=== PATIENT | male | born 1955 | race Caucasian/White ===

== ENCOUNTER 2016-11-02 11:32 | Outpatient (CLI) ==
[2015-03-14 08:19] VITALS: BMI 27.6
[2016-11-02 12:53] LABS: BASOPHILS # (AUTO) 0.1 K/uL (0-0.2); BASOPHILS % (AUTO) 0.6 % (0.0-3.0); EOSINOPHILS # (AUTO) 0.4 K/ul (0.0-0.7); HEMATOCRIT 42.7 % (42.0-52.0); HEMOGLOBIN 14.4 g/dl (14.0-18.0); IMMATURE GRANULOCYTE % (AUTO) 0.3 % (0.0-5.0); LYMPHOCYTES # (AUTO) 3.6 K/uL (0.60-3.4); MEAN CORPUSCULAR HEMOGLOBIN 29.4 pg (27.0-31.0); MEAN CORPUSCULAR HGB CONC 33.7 (31.8-35.4); MEAN CORPUSCULAR VOLUME 87.1 fl (80.0-94.0); MONOCYTES # (AUTO) 0.7 K/uL (0.4-2.0); MONOCYTES % (AUTO) 9.2 (0-10); NEUTROPHILS # (AUTO) 3.2 K/ul (2.0-6.9); NEUTROPHILS % (AUTO) 39.9; PLATELET COUNT 298 10^3/uL (140-440); WHITE BLOOD COUNT 7.97 K/ul (4.2-10.2)
[2016-11-02 13:34] LABS: ALBUMIN 3.8 g/dL (3.4-5.0); ALBUMIN/GLOBULIN RATIO 0.95; BILIRUBIN,TOTAL 0.32 mg/dL (0.00-1.20); BUN/CREATININE RATIO 9.33; CALCIUM 9.7 mg/dL (8.2-10.2); CHOL/HDL RATIO 8.3 (4.5-6.4); CREATININE 1.5 mg/dL (0.60-1.10); TOTAL PROTEIN 7.8 g/dL (5.8-8.1)
[2016-11-03 07:24] LABS: PROLACTIN 63.9 ng/mL (4.0-15.2)
[2016-11-04 08:12] LABS: FREE TESTOSTERONE 6.1 pg/mL (6.6-18.1)
== END 2016-11-02 11:33 | disposition home or self-care (01) ==
LOC: LAB 11:32
PROVIDERS: ATTEND Nurse Practitioner Family
DX: F32.9 Major depressive disorder, single episode, unspecified (principal); F31.9 Bipolar disorder, unspecified; E78.5 Hyperlipidemia, unspecified; I10 Essential (primary) hypertension
CPT/HCPCS: 36415; 80053; 80061; 80074; 83036; 84146; 84402; 84439; 84443; 85025

== ENCOUNTER 2016-11-09 07:20 | Outpatient (CLI) ==
[2015-03-14 08:19] VITALS: BMI 27.6
--- NOTE | 2016-11-09 08:44 | US ---
Examination: Ultrasonographic evaluation of the kidneys utilizing real time reardon scale and color Do ppler. Reason for study: Abnormal blood history. Comparison: None available FINDINGS: Right kidney: The right kidney measures 9.7 x 3.6 x 4.7 cm with a normal appearing echotexture, no hydronephrosis, and no nephrolithiasis. No perinephric inflammatory change. There is mild lobulated appearance to the renal parenchyma. Left kidney: The left kidney measures 9.5 x 3.8 x 4.3 cm with a normal appearing echotexture, no hydronephrosis, and no nephrolithiasis. There is no perinephric inflammatory change. The left kidney also has a mi ldly lobulated appearance of the renal parenchyma. The bladder is difficult to evaluate accurately as is almost empty of urine. This makes interpretat ion of bladder wall thickness and identification of possible bladder lesions unreliable. Impression: Mild lobulation is seen in both of the renal cortices. Otherwise, unremarkable ultraso nographic examination of the kidneys.
== END 2016-11-09 07:21 | disposition home or self-care (01) ==
LOC: RAD 07:20
PROVIDERS: ATTEND Nurse Practitioner Family
DX: R79.89 Other specified abnormal findings of blood chemistry (principal); J44.9 Chronic obstructive pulmonary disease, unspecified
CPT/HCPCS: 76770

== ENCOUNTER 2017-01-04 08:32 | Outpatient (CLI) ==
[2015-03-14 08:19] VITALS: BMI 27.6
[2017-01-04 09:39] LABS: ANION GAP 13.8; BUN/CREATININE RATIO 13.09; CALCIUM 9.7 mg/dL (8.2-10.2); CREATININE 1.68 mg/dL (0.60-1.10); POTASSIUM 3.8 mmol/L (3.5-5.1)
[2017-01-05 08:19] LABS: FOLLICLE STIMULATING HORMONE 4.6 mIU/mL (1.5-12.4); LUTEINIZING HORMONE 5.9 mIU/mL (1.7-8.6); TESTOSTERONE 295 ng/dL (348-1197)
[2017-01-05 12:03] LABS: PROLACTIN 19.1 ng/mL (4.0-15.2)
== END 2017-01-04 08:33 | disposition home or self-care (01) ==
LOC: LAB 08:32
PROVIDERS: ATTEND Nurse Practitioner
DX: R53.83 Other fatigue (principal); E29.1 Testicular hypofunction; E22.9 Hyperfunction of pituitary gland, unspecified; R79.89 Other specified abnormal findings of blood chemistry
CPT/HCPCS: 36415; 80048; 82024; 82306; 82533; 82607; 83001; 83002; 84146; 84402; 84403

== ENCOUNTER 2017-04-21 12:46 | Outpatient (CLI) ==
[2015-03-14 08:19] VITALS: BMI 27.6
[2017-04-21 13:27] LABS: BASOPHILS # (AUTO) 0.1 K/uL (0-0.2); BASOPHILS % (AUTO) 0.7 % (0.0-3.0); EOSINOPHILS # (AUTO) 0.3 K/ul (0.0-0.7); EOSINOPHILS % (AUTO) 3.6 % (0.0-7.0); HEMATOCRIT 41.8 % (42.0-52.0); HEMOGLOBIN 14.1 g/dl (14.0-18.0); IMMATURE GRANULOCYTE % (AUTO) 0.2 % (0.0-5.0); LYMPHOCYTES # (AUTO) 3.3 K/uL (0.60-3.4); LYMPHOCYTES % (AUTO) 34.9 (10.0-50.0); MEAN CORPUSCULAR HEMOGLOBIN 28.4 pg (27.0-31.0); MEAN CORPUSCULAR HGB CONC 33.7 (31.8-35.4); MEAN CORPUSCULAR VOLUME 84.3 fl (80.0-94.0); MONOCYTES # (AUTO) 0.8 K/uL (0.4-2.0); MONOCYTES % (AUTO) 8.2 (0-10); NEUTROPHILS # (AUTO) 4.9 K/ul (2.0-6.9); NEUTROPHILS % (AUTO) 52.4; PLATELET COUNT 308 10^3/uL (140-440); RED BLOOD COUNT 4.96 10^6/ul (4.70-6.10); WHITE BLOOD COUNT 9.36 K/ul (4.2-10.2)
[2017-04-21 13:39] LABS: ALBUMIN 3.6 g/dL (3.4-5.0); ALBUMIN/GLOBULIN RATIO 0.97; ANION GAP 15.5; BILIRUBIN,TOTAL 0.24 mg/dL (0.00-1.20); BUN/CREATININE RATIO 10.14; CALCIUM 9.6 mg/dL (8.2-10.2); CHOL/HDL RATIO 5.5 (4.5-6.4); CREATININE 1.38 mg/dL (0.60-1.10); POTASSIUM 4.5 mmol/L (3.5-5.1); TOTAL PROTEIN 7.3 g/dL (5.8-8.1)
== END 2017-04-21 12:47 | disposition home or self-care (01) ==
LOC: LAB 12:46
PROVIDERS: ATTEND Nurse Practitioner Family
DX: E78.5 Hyperlipidemia, unspecified (principal); I25.10 Atherosclerotic heart disease of native coronary artery without angina pectoris; J44.9 Chronic obstructive pulmonary disease, unspecified; F17.200 Nicotine dependence, unspecified, uncomplicated
CPT/HCPCS: 36415; 80053; 80061; 85025

== ENCOUNTER 2017-09-12 12:40 | Outpatient (CLI) ==
[2015-03-14 08:19] VITALS: BMI 27.6
[2017-09-12 13:17] LABS: CHOL/HDL RATIO 5.7 (4.5-6.4)
== END 2017-09-12 12:41 | disposition home or self-care (01) ==
LOC: LAB 12:40
PROVIDERS: ATTEND Internal Medicine
DX: E78.2 Mixed hyperlipidemia (principal)
CPT/HCPCS: 36415; 80061

== ENCOUNTER 2018-01-09 14:22 | Outpatient (CLI) ==
[2015-03-14 08:19] VITALS: BMI 27.6
== END 2018-01-09 14:23 | disposition home or self-care (01) ==
LOC: RHC-LAB 14:22
PROVIDERS: ATTEND Nurse Practitioner Family
DX: R73.9 Hyperglycemia, unspecified (principal); F41.8 Other specified anxiety disorders; Z12.5 Encounter for screening for malignant neoplasm of prostate
CPT/HCPCS: 36415; 83037; 84443

== ENCOUNTER 2018-03-27 11:52 | Outpatient (CLI) ==
[2015-03-14 08:19] VITALS: BMI 27.6
== END 2018-03-27 11:53 | disposition home or self-care (01) ==
LOC: RHC-LAB 11:52
PROVIDERS: ATTEND Nurse Practitioner Family
DX: E78.5 Hyperlipidemia, unspecified (principal); I10 Essential (primary) hypertension
CPT/HCPCS: 36415; 80053; 80061; 85025

== ENCOUNTER 2018-12-10 12:05 | Inpatient (IN) ==
--- NOTE | 2018-12-10 14:46 | CT ---
Exam: CT abdomen pelvis without intravenous contrast followed by CT abdomen pelvis with intravenous contrast. Comparison: Ultrasound kidneys performed 11/09/2016. Reason for exam: Gross hematuria x 1 month FINDINGS: Patchy airspace opacities are seen in both lung bases. No pleural effusion, or focal consolidation. Operative changes are seen after midline sternotomy. The heart is mildly prominent in size. The liver is lower in attenuation in the spleen on the noncontrasted images. Small stones are seen in the dependent portion of the gallbladder without wall thickening. The splenic parenchyma, adrenal glands, and pancreas appear grossly unremarkable within limitations o f a noncontrasted study. No focal small bowel dilatation or transition point. Right Kidney: No contrast enhancing parenchymal mass lesion, hydronephrosis or hydroureter. Excreted contrast is seen in the renal collecting systems, renal pelvis, and proximal right ureter. There is apparent intraluminal filling defect in the proximal right ureter on axial image number 88. Small amount of contrast is seen within the ureter distally. With mild periureteral inflammatory ch erica. The left kidney appears grossly unremarkable without contrast enhancing mass lesion. Renal stone, or hydronephrosis. Excrete contrast is seen to the midportion of the left ureter. The bladder appears grossly unremarkable without obvious wall thickening. No focal small bowel dilatation or transition point. No intra-abdominal free air or pelvic free fluid. Atherosclerotic disease is seen within the aorta and distal arterial vasculature. The appendix appears unremarkable. Impression: 1. No contrast enhancing mass lesions are seen in either kidney. No hydronephrosis, hydroureter or nephrolithiasis. 2. Apparent intraluminal filling defect in the midportion of the proximal right ureter on axial imag e number 80. CT urogram versus direct visualization may be performed for further characterization. 3. Contrast is seen to the mid/distal left ureter without evidence of intraluminal filling defect 4. Otherwise, no acute inflammatory findings are seen within the abdomen or pelvis.
--- NOTE | 2018-12-10 15:14 | ED.PDOC ---
General ED Provider: Dr. BIJAN TSE Chief Complaint: Shortness of Air Stated Complaint: hematuria Time Seen by Physician: 12:12 Information Source: Patient, Family Exam Limitations: No limitations Primary Care Provider: VIRIDIANA MALDONADO Nursing and Triage Documentation Reviewed and Agree: Yes Does patient meet sepsis criteria?: No System Inflammatory Response Syndrome: Not Applicable Sepsis Protocol: For patient's 13 years and over: Temp is 96.8 and below OR 101 and greater Pulse >90 BPM Resp >20/minute Acutely Altered Mental Status Are patient's symptoms suggestive of a new infection, such as: -Pneumonia -Skin, Soft Tissue -Endocarditis -UTI -Bone, Joint Infection -Implantable Device -Acute Abdominal Infection -Wound Infection -Meningitis -Blood Stream Catheter Infection -Unknown Complaint Exam - Complaint/Exam Patient Complains of: Reports: Dysuria Onset/Duration: 2 month Symptoms Are: Still present Timing: Intermittent Initial Severity: Moderate Current Severity: Mild Location of Pain: Reports: None (painless hematuria) Aggravating: Reports: None Alleviating: Reports: None Associated Signs and Symptoms: Denies: Diaphoresis, Back pain, Fever, Hematuria , Dysuria, Constipation, Blood in stool, Rectal pain, Appetite change, Nausea, Vomiting, Penile swelling, Penile discharge, Decreased urine output, Increased urine frequency, Increased thirst, Decreased activity, Lethargy, Scrotal pain, Scrotal swelling, Abdominal Pain Testicular Torsion Risk Factors: Reports: None Surgical Obstruction Risk Factors: Reports: None Related Surgical History: Reports: None Abdominal Findings: Present: None Differential Diagnoses: UTI Review of Systems - Review Of Systems Constitutional: Reports: No symptoms Eyes: Reports: No symptoms Ears, Nose, Mouth, Throat: Reports: No symptoms Respiratory: Reports: No symptoms Cardiac: Reports: No symptoms GI: Reports: No symptoms : Reports: Hematuria Musculoskeletal: Reports: No symptoms Skin: Reports: No symptoms Neurological: Reports: No symptoms Endocrine: Reports: No symptoms Hematologic/Lymphatic: Reports: No symptoms All Other Systems: Reviewed and Negative Past Medical History - Past Medical History Previously Healthy: Yes Endocrine: Reports: None Cardiovascular: Reports: Hypertension Respiratory: Reports: COPD Hematological: Reports: None Gastrointestinal: Reports: GERD Genitourinary: Reports: None Neuro/Psych: Reports: None Musculoskeletal: Reports: None Cancer: Reports: None - Surgical History General Surgical History: Reports: CABG - Family History Family History: Reports: None - Social History Smoking Status: Current every day smoker Hx Substance Use: No Alcohol Screening: None Physical Exam - Physical Exam Appearance: Well-appearing, No pain distress, Well-nourished Eyes: CHANNING, EOMI, Conjunctiva clear ENT: Ears normal, Nose normal, Oropharynx normal Respiratory: Airway patent, Breath sounds clear, Breath sounds equal, Respirations nonlabored Cardiovascular: RRR, Pulses normal, No rub, No murmur GI/: Soft, Nontender, No masses, Bowel sounds normal, No Organomegaly Musculoskeletal: Normal strength, ROM intact, No edema, No calf tenderness Skin: Warm, Dry, Normal color Neurological: Sensation intact, Motor intact, Reflexes intact, Cranial nerves intact, Alert, Oriented Psychiatric: Affect appropriate, Mood appropriate Interpretation - Radiology Interpretation Radiology Results: No acute changes (interms of renal mass) Critical Care Note - Critical Care Note Total Time (mins): 0 Course - Course Hematology/Chemistry: 12/10/18 12:45 12/10/18 12:45 Orders, Labs, Meds: Lab Review 12/10/18 12/10/18 12/10/18 12:20 12:45 12:45 WBC 29.06 H RBC 4.84 Hgb 12.7 L Hct 37.8 L MCV 78.1 L MCH 26.2 L MCHC 33.6 RDW Coeff of Kain 12.9 Plt Count 234 Neutrophils % (Manual) 66.0 Band Neutrophils % 20.0 H Lymphocytes % (Manual) 9.0 L Monocytes % (Manual) 5.0 Anisocytosis Not present PT 11.7 H INR 1.18 APTT 34.8 Sodium Potassium Chloride Carbon Dioxide Anion Gap BUN Creatinine Estimated GFR (MDRD) BUN/Creatinine Ratio Glucose Calcium Total Bilirubin AST ALT Alkaline Phosphatase Total Protein Albumin Globulin Albumin/Globulin Ratio Urine Color Yellow Urine Clarity Clear Urine pH 5.5 Ur Specific Falcon 1.015 Urine Protein Negative Urine Glucose (UA) Negative Urine Ketones Negative Urine Blood Trace-intact Urine Nitrite Positive Urine Bilirubin Negative Urine Urobilinogen 0.2 Ur Leukocyte Esterase 3+ Urine Microscopic WBC Tntc Ur Squamous Epith Cells Not present Amorphous Sediment 1+ Urine Bacteria 2+ Blood Type 12/10/18 12/10/18 12:45 12:45 WBC RBC Hgb Hct MCV MCH MCHC RDW Coeff of Kain Plt Count Neutrophils % (Manual) Band Neutrophils % Lymphocytes % (Manual) Monocytes % (Manual) Anisocytosis PT INR APTT Sodium 133.1 L Potassium 5.02 Chloride 98.0 Carbon Dioxide 21.8 L Anion Gap 18.32 BUN 24.6 H Creatinine 1.70 H Estimated GFR (MDRD) 41.00 BUN/Creatinine Ratio 14.47 Glucose 119.1 H Calcium 9.25 Total Bilirubin 0.99 AST 47.6 ALT 25.8 Alkaline Phosphatase 85.4 Total Protein 7.72 Albumin 4.28 Globulin 3.44 Albumin/Globulin Ratio 1.24 Urine Color Urine Clarity Urine pH Ur Specific Falcon Urine Protein Urine Glucose (UA) Urine Ketones Urine Blood Urine Nitrite Urine Bilirubin Urine Urobilinogen Ur Leukocyte Esterase Urine Microscopic WBC Ur Squamous Epith Cells Amorphous Sediment Urine Bacteria Blood Type A POSITIVE Orders Category Date Time Status NPO REMINDER: IMAGING ONCE CARE 12/10/18 12:41 Active CBC W/ AUTO DIFF Stat LAB 12/10/18 12:45 Completed COMPREHENSIVE METABOLIC PANEL Stat LAB 12/10/18 12:45 Completed MANUAL DIFFERENTIAL Stat LAB 12/10/18 12:45 Completed PARTIAL THROMBOPLASTIN TIME Stat LAB 12/10/18 12:45 Completed PT WITH INR Stat LAB 12/10/18 12:45 Completed UA [URINALYSIS C & S IF INDICATED] Stat LAB 12/10/18 12:20 Completed URINE CULTURE Stat LAB 12/10/18 12:[address] ABDOMEN/PELVIS W/WO CONTRAS Stat RADS 12/10/18 12:41 Completed Vital Signs: Temp Pulse Resp BP Pulse Ox 12/10/18 12:05 97.9 F 79 20 98/64 92 L Departure - Departure Time of Disposition: 15:17 (was on plavix 1 month ago not now on asprin 81 mg) Disposition: ADMITTED INPATIENT Discharge Problem: UTI (urinary tract infection) Qualifiers: Urinary tract infection type: site unspecified Hematuria presence: without hematuria Qualified Code(s): N39.0 - Urinary tract infection, site not specified Instructions: Urinary Tract Infection in Men (ED) Condition: Good Pt referred to PMD for follow-up: Yes IPMP verified?: No Additional Instructions: Please call your Family Physician as soon as possible to schedule a follow-up appointment. Allergies/Adverse Reactions: Allergies isosorbide Adverse Reaction (Verified 12/10/18 12:11) lithium Adverse Reaction (Verified 12/10/18 12:11) sertraline Adverse Reaction (Verified 12/10/18 12:11) Home Medications: Ambulatory Orders Baby Aspirin 81 mg PO DAILY 03/18/15 Atorvastatin Calcium [Lipitor] 40 mg PO DAILY 01/09/18 Temazepam 15 mg PO BEDTIME 01/09/18 Venlafaxine HCl [Effexor Xr] 150 mg PO DAILY 01/09/18 Ziprasidone HCl [Geodon] 60 mg PO BEDTIME 01/09/18 Hydroxyzine HCl 1 - 3 tab PO DAILY PRN 12/10/18 Disposition Discussed With: Patient, Family
[2018-12-10] MEDS ORDERED: SODIUM CHLORIDE 1,000 ML IV STA (15:24)
[2018-12-10] MEDS ORDERED: ROCEPHIN 1 GM in SODIUM CHLORIDE 50 ML IV STA (15:24)
[2018-12-10] MEDS ORDERED: VANCOMYCIN 1 GM in SODIUM CHLORIDE 250 ML IV STA (15:25)
[2018-12-10] MEDS ORDERED: SODIUM CHLORIDE 1,000 ML IV SCH (15:30)
[2018-12-10] MEDS ORDERED: ROCEPHIN ONE (15:36)
[2018-12-10 16:49] VITALS: BMI 32.1
[2018-12-10] MEDS ORDERED: ZANTAC PO SCH (17:00)
[2018-12-10] MEDS ORDERED: AZACTAM 1 GM in SODIUM CHLORIDE 50 ML IV STA (17:14)
--- NOTE | 2018-12-10 18:13 | CT ---
EXAM: Noncontrast chest CT HISTORY: Short of air, fever, infection COMPARISON: 01/06/2014 TECHNIQUE: Axial noncontrast CT of the chest with sagittal and coronal reformats. FINDINGS: Moderate emphysematous changes are again seen. Mild inferior right upper lobe scarring is again seen . Mild left lower lobe and lingular atelectasis is seen. There is minimal anterior medial left uppe r lobe scarring. No focal consolidation, pleural effusion or pneumothorax is identified. Heart size is normal. Operative changes of CABG are identified. Atherosclerotic calcifications are seen including coronary arteries. No mediastinal lymphadenopathy is seen. Residual contrast is seen within the kidneys. Minimal gallstones are identified. There is dilation of the abdominal aorta measuring up to 3.5 x 3.4 cm on sagittal and coronal images. IMPRESSION: No acute cardiopulmonary findings. Emphysematous changes. Atherosclerosis including coronary arteries. Abdominal aortic aneurysm measuring 3.5 x 3.4 cm.
[2018-12-10] MEDS ORDERED: AZACTAM ONE (18:22)
[2018-12-10] MEDS ORDERED: DEXTROSE 5%-LR IV SOLUTION 1,000 ML IV SCH ×3 (20:00)
[2018-12-10] MEDS ORDERED: NON-FORMULARY MEDICATION (Hydroxyzine Hcl [Hydroxyzine Hcl] 50 MG) PO SCH (21:00)
[2018-12-10] MEDS ORDERED: GEODON PO SCH (21:00)
[2018-12-10] MEDS ORDERED: ATARAX PO SCH (21:00)
[2018-12-10] MEDS ORDERED: RESTORIL PO SCH (21:00)
[2018-12-10] MEDS ORDERED: LOPID PO SCH (21:00)
[2018-12-10] MEDS ORDERED: ZIPRASIDONE HCL 60 MG PO SCH (21:00)
[2018-12-10] MEDS ORDERED: LIPITOR PO SCH (22:00)
[2018-12-10] MEDS ORDERED: LIPITOR ONE (22:03)
[2018-12-11] MEDS ORDERED: DEXTROSE 5%-LR IV SOLUTION 1,000 ML IV SCH (00:01)
[2018-12-11] MEDS ORDERED: SOLU-CORTEF 250 MG IVP STA (00:56)
[2018-12-11] MEDS ORDERED: SOLU-CORTEF 250 MG ONE (00:59)
[2018-12-11] MEDS ORDERED: ALBUTEROL 0.042% NEB NEB STA ×2 (01:45→01:55)
[2018-12-11] MEDS ORDERED: DUONEB NEB STA (01:46)
[2018-12-11 01:52] VITALS: BP 101/48; TEMP 98.3
[2018-12-11] MEDS ORDERED: ALBUTEROL 0.042% NEB NEB ONE (01:53)
[2018-12-11] MEDS ORDERED: INVANZ ONE (02:23)
[2018-12-11] MEDS ORDERED: INVANZ 1 GM in SODIUM CHLORIDE 50 ML IV STA (02:27)
[2018-12-11] MEDS ORDERED: ASPIRIN EC PO SCH (08:00)
[2018-12-11] MEDS ORDERED: AZACTAM 1 GM in SODIUM CHLORIDE 50 ML IV SCH (09:00)
[2018-12-11] MEDS ORDERED: NON-FORMULARY MEDICATION (Atorvastatin Calcium [Lipitor] 40 MG) PO SCH (09:00)
[2018-12-11] MEDS ORDERED: LIPITOR PO SCH (09:00)
[2018-12-11] MEDS ORDERED: EFFEXOR XR PO SCH (09:00)
[2018-12-11] MEDS ORDERED: ROCEPHIN 1 GM in SODIUM CHLORIDE 50 ML IV SCH (09:00)
[2018-12-11] MEDS ORDERED: FLOMAX PO SCH (09:00)
[2018-12-11] MEDS ORDERED: LOPRESSOR PO SCH (09:00)
[2018-12-11] MEDS ORDERED: BABY ASPIRIN PO SCH (09:00)
--- NOTE | 2018-12-11 11:06 | PN ---
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 I told him that his illness is serious and that we will try to treat him however if the condition worsens that we may have to transfer him. The patient has confirmed that he does not want any resuscitation. I had talked to the daughter with that and she told me that she will go along with it and not contradict her father. I made mention as an observation that if he stayed at home for another two days that his condition would have deteriorated that maybe nothing could be done to salvage him although there is a difference between individuals. The patient had received Rocephin in the emergency room as well as Vancomycin. The Rocephin was discontinued and Azactam was given. I would probably give Ertapenem and replace the Azactam for the next dose. Anticipating that if it is e-coli and ESBL positive that Ertapenem would be the better choice of medication. His IV will be changed to Dextrose 5% lactated ringers to run at 125cc for now since his NT PRO BNP is slightly higher but this might be secondary to the infection since the CT does not indicate any interstitial edema. Needs to hydrate him more so that he had a contrast medium given at the Emergency Room. ADDENDUM: I went into his room at 7pm tonight 117 and his daughter was present. The patient told him that he felt better. I did tell them I would like to measure his urine and that he should not throw the urine away however it is going to be in the room so notify the nurse once he urinates in the urinal. We would like to measure the urine every 4 hours. This patient's labs done at the emergency room have been reviewed and showed that it was ordered for CBC, CMP and U/A at 12:45. Lactic acid was 1525, Procalcitonin at 1523. This patient sees Dr. Trammell a Communications Advisor at [facility] and Dr. Keys the Urologist. We will repeat the renal panel at midnight tonight and increase his fluid to 150cc for about 4 hours. This patient was given a contrast medium. MTDD
--- NOTE | 2018-12-11 14:50 | HP ---
DATE OF SERVICE: 12/10/18 CHIEF COMPLAINT: Shortness of breath, chills and fever. SOURCE OF HISTORY: The patient, upper cutter machine and emergency room notes. HISTORY OF PRESENT ILLNESS: The patient claimed that he was doing okay until Monday morning when he woke up with sensation of being short of air aggravated by movement and shaking chills and fever. The problem continued until the next day and presented to the emergency room 12:05 p.m. The patient denied any chest pain except for the above with fatigue. His upper cutter machine also mentioned a gross hematuria, moderate amount of blood and he had this problem for the last two months or there abouts. He had not consulted anyone for this problem. His workup in the emergency room showed severe leukocytosis 29,060, bands 20, platelet count 234, 000, hemoglobin 12.7. His urinalysis was abnormal, positive nitrite, WBC too numerous to count, squameous epithileal cells not present. Urine bacteria 2+, leukocyte esterase 3+. The emergency room physician did contact me with these results including a CT scan of the abdomen and pelvis. He thought there might be some malignancy or tumor in the kidney causing the hematuria. A CT scan was done with and without contrast. They told me that there was nothing in the kidneys and that the problem may be solely in the bladder since the scan was negative. I reviewed the records at the clinic from [facility] and there was notation about diabetes but the patient's records did not show any diabetic medication. I did call the emergency room to get arterial blood gases since there was mention of diabetes. The ER doctor mentioned that the patient claimed that he is not diabetic. The nurse in the emergency room called me back what to do after the arterial blood gases. They asked me if the patient could be admitted after the arterial blood gases were done. I said yes; however, I had no knowledge of the report of the arterial blood gases, it was not communicated to me. Initial chemistries that I have viewed did not have lactic acid. Further blood tests were ordered, lactic acid and procalcitonin at . I saw the results at the office and they were markedly elevated and I discussed the case with Dr. Castellanos and hopefully he can see the patient on consultation. I called back the emergency room and they already had transferred the patient to the floor according to Michaelle about 15 minutes before my call. Vital signs on admission to the emergency room: Pulse 79, respiratory rate 20, blood pressure 98/64, temperature 97.6, oxygen saturation 92 on room air. PAST PERSONAL HISTORY: The patient had previous myocardial infarction with cardiac catheterization and stent 1994; cardiac surgery, bypass 12 years ago, triple vessel. History of hypertension, COPD, GERD, depression and anxiety, chronic tobacco use and abuse. The patient had hernia surgery. FAMILY HISTORY: Brother had heart disease, mother also had heart disease. SOCIAL HISTORY: The patient is single with grown children. He does have a upper cutter machine. He smokes one pack of cigarettes or more daily. MEDICATIONS: (PRIOR TO THIS ADMISSION) Aspirin 81 mg daily Lipitor 40 mg daily Ziprasidone (Geodon) 60 mg b.i.d. Temazepam 15 mg at bedtime Venlafaxine 150 mg daily Gemfibrozil 600 mg p.o. b.i.d. Metoprolol Tartrate 25 mg daily Ranitidine 150 mg twice a day Hydroxyzine 50 mg at bedtime Flomax 0.4 mg daily Hydroxyzine 25 mg tablet 1 to 3 times a day ALLERGIES: DEXAMETHASONE, ISOSORBIDE, LITHIUM, SERTRALINE REVIEW OF SYSTEMS: CONSTITUTIONAL: The patient has fever, chills and fatigue. COUTURIERE: Alert, not confused, weak. No syncopal episode. No seizure event. The patient is shaky in his legs on standing transferring from bed to wheelchair. VISUAL: No double vision, no loss of vision. AUDITORY: Able to hear without any ringing of the ears, no pain or drainage. RESPIRATORY: The patient has a cough, a chronic smoker. No hemoptysis but short of breath. CARDIOVASCULAR: The patient denies any chest pain but history of coronary artery disease post bypass, triple. He is also hypertensive. No complaint of any chest pain or chest tightness. GASTROINTESTINAL: Appetite is down today but had a good appetite previous to Monday. No abdominal pain. No change in bowel habits. No diarrhea. GENITOURINARY: The patient has blood in the urine and had been having gross hematuria for the last two months. He had not consulted anyone according to the information that I obtained. He does have intermittent dysuria. MUSCULOSKELETAL: The patient is shaking, probably from the fever. ENDOCRINE: No polyuria or polydipsia. INTEGUMENT: Denies any rash or pruritus. HEMATOLOGIC: No history of prolonged bleeding or spontaneous bleeding. No history of ecchymosis. PSYCHIATRIC: The patient does have some psychiatric problems but this affect appears to be okay although he looks tired because of the fever and the illness that he is experiencing at this time. He had been under the care of the psychiatrist at [facility]. His medications were prescribed from that facility. PHYSICAL EXAMINATION: GENERAL: 63-year-old male admitted to the hospital because of fever and chills, shortness of breath, abnormal urinalysis, markedly elevated leukocytosis, elevated lactic acid as well as procalcitonin. The patient also had diminished estimated GFR with elevated BUN. The patient on my first examination about [address] Castellanos had examined him seemed to have some circumoral light cyanosis. He had nasal oxygen at 2L. He was alert and responsive. X-ray technologist came to get him for the CT scan of the chest so I did not proceed with my examination and I came back and took the history and physical examination about 6:05. VITAL SIGNS: At 1628 showed a temperature of 97.6 and his temperature one hour earlier was 101.3. Pulse 118. Blood pressure left 133/72, right 109/69, respiratory rate 24. Oxygen saturation 93 on 2L of oxygen, measured 5'6", 198 lbs, 13.7 ozs. HEAD: Unremarkable. Scalp: No active dermatitis. Face is symmetrical and equal with no facial weakness and no significant tenderness in the frontal and maxillary sinus areas to palpation and/or pressure. EYES: Pupils equal/reactive to light about 3 mm in size.. Conjunctivae slightly pale. Sclerae not icteric. MOUTH: Unremarkable. Throat no inflammation or exudate. THROAT: No inflammation, tumors or exudate. NECK: No masses. No bruit. No tenderness. No rigidity. CHEST: Essentially symmetrical and equal with good expansion. The patient has a scar from the mediastinotomy incision. LUNGS: Breath sounds are diminished with rales in both lung figueroa, lower half. Rales slightly more on the right. It is hard to assess however since I listened through an undershirt between the stethoscope and skin. It is hard for the patient to sit up straight. HEART: Audible and regular - somewhat tachycardic. No murmurs. ABDOMEN: Soft with no remarkable tenderness. No guarding. Bowel sounds are active, hyperactive. No bruit. EXTERNAL GENITALIA: RECTAL: LOWER EXTREMITIES: Essentially symmetrical and equal with 1+ pitting edema, slightly more on the left. The left anterior pulse is palpable and the right posterior tibial is palpable. Will reexamine the pulses when the patient's condition has improved. UPPER EXTREMITIES: Symmetrical and equal. ASSESSMENT: 1. Urinary tract infection with probable bacteremia. 2. Severe hypoxemia. 3. Gross hematuria probably secondary to ureteral lesion right side. 4. History of coronary artery disease status post bypass 12 years ago. 5. History of hypertension. 6. History of chronic tobacco use and abuse, persistent. 7. History of COPD probably secondary to the above. 8. History of depression and anxiety chronic. The patient is followed by [facility] under psychiatrist. 9. Elevated BMI 32.2. PROGNOSIS: Guarded TIME SPENT: GREATER THAN 65 MINUTES MTDD
--- NOTE | 2018-12-12 14:51 | CONS ---
DATE OF CONSULTATION: 12/10/18 REASON FOR CONSULTATION Leukocytosis with Lactic acidosis with metabolic acidosis with possibility to septicemia with urinary tract infection HISTORY OF PRESENT ILLNESS: 65 year old White male came to the emergency room with complaint of shortness of breath and hematuria. The patient's hematuria started nearly a month ago off and on. The patient had some symptoms of urinary tract infection but yesterday evening he started having fever and chills with shortness of breath. Prior to that the patient was doing fine with normal appetite. According the friend the patient then decided to come to the emergency room this day in the noon hours. REVIEW OF SYSTEMS: CONSTITUTIONAL: No night sweats. No fatigue, malaise, lethargy. No fever or chills. HEENT: Eyes: No visual changes. No eye pain. No eye discharge. ENT: No sinus drainage. No epistaxis. No sinus pain. No sore throat. No odynophagia. No ear pain. No congestion. RESPIRATORY: No cough, no congestion. No hemoptysis. No shortness of breath. CARDIOVASCULAR: No angina symptoms. No CHF symptoms. No atypical chest pain for CAD. No palpitations. No orthopnea. GASTROINTESTINAL: No abdominal pain. No nausea or vomiting. No diarrhea or constipation. No hematemesis. No hematochezia. GENITOURINARY: No urgency. No frequency. No dysuria. No hematuria. No obstructive symptoms. No discharge. No pain. No significant abnormal bleeding. MUSCULOSKELETAL: No musculoskeletal pain. No joint swelling. NEUROLOGICAL: No headache. No neck pain. No syncope. No seizures. No dizziness. PSYCHIATRIC: Not anxious. No depression. No suicidal thoughts. No homicidal thoughts. SKIN: No rash. No lesions. No wounds. ENDOCRINE: No unexplained weight loss. No weight gain. HEMATOLOGIC/LYMPHATIC: No anemia. No purpura. No petechiae. No prolonged or excessive bleeding. No palpable lymph nodes. MEDICATIONS: Baby Aspirin 81mg Po daily Atorvastatin 40mg PO daily Temazepam 15mg PO bedtime Effexor 150mg daily Geodon 60mg PO twice a day Gemfibrozil 600mg twice a day Metoprolol 25mg PO daily Hydroxyzine 50mg PO at bedtime Zantac 150mg twice a day Flomax 0.4mg PO at HS Hydroxyzine three times a day PRN ALLERGIES: Isosorbide [place] Sertraline Steroids PAST MEDICAL HISTORY: Hypertension Dyslipidemia BPH COPD Coronary bypass surgery The patient is noncompliant PAST SURGICAL HISTORY: Bypass surgery status post stent placement SOCIAL/PERSONAL/FAMILY HISTORY: The patient is single. Current everyday smoker. No substance abuse. Family History of cardiac disorder. PHYSICAL EXAMINATION: GENERAL: The patient is oriented to time, place and person. VITAL SIGNS: Temperature 98.5, pulse 120, respiratory rate 17, blood pressure 95 /60 and oxygen saturation on 2 liters 94%. HEENT: Head normocephalic, atraumatic. Eyes: Extraocular muscles are intact. Pupils are equal, round and reactive to light and accommodation. Ears: No lesions. Nose appeared normal. Throat: No exudate or erythema. NECK: Supple. No JVD, no carotid bruit. No lymphadenopathy or thyromegaly. LUNGS: Decreased breath sounds but clear to auscultation not that much of a good air entry. Percussion note normal. Chest symmetrical. HEART: S1, S2, no S3. No murmurs. Tachycardia. No cyanosis or clubbing. No ascites. Pulses: Dorsalis pedis and posterior tibial pulses +1 to +2 bilaterally. ABDOMEN: Soft. Nontender. Bowel sounds active. No CVA tenderness. No mass felt. EXTREMITIES: Trace pedal edema. Full range of motion of all extremities, equal. NEUROLOGIC: No focal deficit. Cranial nerves II through XII are grossly intact. No headache, no double vision or headache. SKIN: Dry. Intact. Turgor - normal. Looks pale. LYMPHATIC: No palpable lymph nodes/no lymphedema. MUSCULOSKELETAL: Normal joints with no swelling. Muscle tone is normal. LABS: WBC 30,000, hgb acceptable range 12.5, hct 37, creatinine 1.8, BUN 24, lactic acid elevated, arterial blood gasses pH 7.41 with pO 54, pCO2 24 with no bicarb and HCO3 indicating metabolic acidosis. EKG sinus tachycardia. CT scan of the abdomen negative for any acute findings. No reason hematuria noted. ASSESSMENT: 1. Septicemia with WBC of 30,000 positive lactic acid, fever and chills with abnormal U/A showing leukocyte esterase and +3 bacteria and +3 blood. The patient definitely with urosepsis. 2. History of smoking 3. Severe chronic lung disease 4. Hypertension 5. Dyslipidemia 6. Coronary bypass surgery status post stent placement 7. Hypertension 8. Noncompliance. RECOMMENDATIONS: 1. Treat Urosepsis with IV fluids 100cc per hour 2. Watch for fluid overload 3. Rocephin, Azactam and Vancomycin combination. 4. Telemetry 5. EKG was done 6. Monitor arterial blood gasses 7. Oxygen supplements 6. The patient says that he does not want any resuscitative efforts. He wants DNR. 7. Counseling for smoking done Case discussed with Dr. Cabello. The patient maybe transferred to tertiary center for further treatment with help of Urologist and Infectious disease specialist. The patient's condition seems to be stable. PROGNOSIS: Guarded Thanks for referral. NIKA
--- NOTE | 2018-12-13 09:09 | DS ---
DATE OF SERVICE: 12/11/18 PATIENT IDENTIFICATION: 63-year-old male who presented to the emergency room because of shortness of breath and weakness. The patient has COPD and continued to smoke and has exertional dyspnea but the patient Monday morning, the day before presentation experienced dyspnea and tachypnea even at rest. The patient had rales in both lung figueroa on initial examination at 5 o'clock in the afternoon. Chest CT without contrast done about 5 p.m. showed no acute cardiopulmonary processes, emphysematous changes, atherosclerosis including the coronary arteries. 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 Arterial blood gases done after my conversation with the ER physician showed severe hypoxemia, respiratory failure, FI02 21%, oxygen saturation 89, pH 7.417, pc02 27.5, p02 54 , HC03 17.7, total c02 19, base excess -7. Anion Gap 18.32, BUN 24.6, creatinine 1.7, EGFR 41. Blood sugar 119. Liver enzymes normal. The patient was dyspneic and tachypneic. The #2 problem is dysuria beginning Monday, three days before presentation persisted and did experience fever and chills by Monday morning with shortness of breath. The patient continued to have chills but no vomiting and presented again to the emergency room because of the shortness of breath and dyspnea but the urinalysis was markedly abnormal. Nitrite positive. Trace blood. 3+ leukocyte esterase. WBC too numerous to count. Epithileal cells absent, bacteria 2+. Urine was clear. pH 5.5, specific gravity 1.015. WBC was 29,060 and ER M.D. ordered CT scan of the abdomen and pelvis with and without contrast because of the gross hematuria looking for renal tumor. Significant abnormality noted is an intraluminal defect in the right proximal ureter as well as periureteral inflammation on the right. The left kidney and ureter is unremarkable. The patient with chills, fever and dysuria most likely has bacteremia, probably E. coli and can be ESBL positive. This patient received Rocephin 1 gm intravenously in the emergency room and 1 gm of Vancomycin. I had consulted Dr. Castellanos, the marriage and family social worker, because of the patient's tachycardia as well as shortness of breath and history of coronary artery disease status post bypass. Ordered Azactam and the patient received 1 gm of Azactam about 8 o' clock in the evening; ordered it q.12hr. I had discontinued the Azactam as well as the Rocephin. I ordered a gram of Ertapenem and was administered about 2 a.m. 12/11/18. The patient had been incontinent of urine and maybe overflow and so a Kim catheter insertion was attempted by the nurse and was not successful. I tried inserting a catheter using a size 14 [place] with prior intraureteral application of lubricant. The insertion was not successful and so no further attempt was made. There was a blood clot in the Kim catheter in the course of the insertion but no bleeding periureter. The abdomen is protuberant, soft with no remarkable tenderness. Bowel sounds were active and no bruit. The #3 problem was gross hematuria for about two months. He had not consulted a urologist or a doctor for this symptomatology. The patient on initial encounter with me after he was admitted to the floor from the emergency room was alert, responsive and cooperative but dyspneic and tachypneic with minimal circumoral cyanosis. He had 2L of oxygen per nasal cannula. That is about the time he went for CT scan of the chest without contrast. He did have rales on both lung figueroa at the lower posterior chest wall. There was no wheezing. The heart is audible and tachycardic. No murmurs. Electrocardiogram done at that time was normal sinus rhythm without any acute changes - sinus tachycardia. The patient was seen by Dr. Castellanos and ordered Azactam 1 gm q.12hr. The patient did receive 1 gm of the medication about 8 p.m. 12/10/18. He changed the IV from Normal Saline to Dextrose 5% in Lactated Ringers and run at 150 cc/hr for four hours. I bet this patient is probably dehydrated based upon the BUN. This patient also had not been eating since Monday and also because of fever and chills. The patient's creatinine was elevated 1.7 with contrast. The patient at 10 o' clock on 12/10/18 blood pressure went down to 82/60, pulse 111, respiratory rate 22, oxygen saturation 92 with 30% FI02 Venturi mask. Blood pressure did rise to 101/48 at 1:48 a.m. on 12/11/18 and the oxygen saturation is 93 with 36 FI02. The patient is still dyspneic and tachypneic but he is alert and answers questions correctly with no facial weakness, no chest pain. Again, he is dyspneic and tachypneic with some expiratory wheezing. 1/2 strength Albuterol nebulization was done. Repeat renal panel done at midnight 12/10/18 showed sodium 132.4, potassium 3.67, chloride 97.5, c02 19.4 and anion gap 19.17 from 18.32 initially. BUN 32.3, creatinine 2.06, EGFR down to 33. The patient also has TALHA probably secondary to the urinary tract infection. Blood sugar 103, calcium 8.65, phosphorous 2.50. The NT-ProBNP was initially at 1900, did rise to 4330 at midnight. The patient's lactic acid was 4.49 done at 1325 and procalcitonin about the same time and was 113.62. The IV was reduced to KVO rate prior to transfer. FINAL DIAGNOSIS: 1. URINARY TRACT INFECTION WITH PROBABLE BACTEREMIA, POSSIBLY E. COLI OR GRAM NEGATIVE ORGANISM. 2. RESPIRATORY FAILURE. 3. HISTORY OF COPD. 4. CHRONIC TOBACCO USE AND ABUSE PERSISTENT. 5. HISTORY OF INTERMITTENT GROSS HEMATURIA. 6. INTRALUMINAL DEFECT, RIGHT PROXIMAL URETER BY CT. 7. PERIURETERAL INFLAMMATION, MILD, TALHA SECONDARY TO THE INFECTION. 8. ELEVATED NT-PRO-BNP 1900 INITIALLY TO 4,330, HOURS LATER. 9. ELEVATED LACTIC ACID 4.49. 10. ELEVATED PROCALCITONIN 113.62. 11. ELEVATED ANION GAP 18.32. The patient's sterile products processor and daughter was advised that the illness is a serious one. Discussed the case with the [facility] Transfer Nurse as well as Dr. Aragon. The patient's allergies consisted of Dexamethasone and I did give this patient Solu-Cortef. The Dexamethasone allergy is not an allergy. This patient has psychiatric medication and it does seem to have some effects with that. It is not an allergy such as hives or angioedema. It has not had any reaction to the Solu-Cortef that was given 250 mg one dose. TIME SPENT: GREATER THAN 30 MINUTES MTDD
--- NOTE | 2018-12-13 12:49 | CONS ---
CODING FOR BILLING 12/10/18 LEVEL 5 MTDD
== END 2018-12-11 04:05 | disposition short-term general hospital (02) | DRG 689 ==
LOC: ED 12:05 → MEDSURG B 15:23 → EEVIPCON 15:23
PROVIDERS: ADMIT General Practice; ATTEND General Practice
DX: N39.0 Urinary tract infection, site not specified (principal); J96.90 Respiratory failure, unspecified, unspecified whether with hypoxia or hypercapnia; R31.9 Hematuria, unspecified; R30.0 Dysuria; J44.9 Chronic obstructive pulmonary disease, unspecified; R09.02 Hypoxemia; Z72.0 Tobacco use; Z68.32 Body mass index [BMI] 32.0-32.9, adult
CPT/HCPCS: 36415; 80053; 80069; 81001; 82803; 83605; 83880; 84145; 85007; 85025; 85610; 85730; 87040; 87070; 87086; 87186; 93005; 93010; 94640; 96365; 99283

== ENCOUNTER 2018-12-11 04:04 | Outpatient (CLI) ==
[2018-12-10 16:49] VITALS: BMI 32.1
== END 2018-12-11 04:26 | disposition short-term general hospital (02) ==
LOC: AMBL 04:04
PROVIDERS: ATTEND Family Medicine
DX: A41.9 Sepsis, unspecified organism (principal); N39.0 Urinary tract infection, site not specified; E87.70 Fluid overload, unspecified; R60.1 Generalized edema; R00.0 Tachycardia, unspecified

== ENCOUNTER 2019-01-04 11:53 | Outpatient (CLI) | payer OTHER ==
--- NOTE | 2019-01-04 12:40 | DI ---
Exam: Two views of the chest. Comparison: CT chest performed 12/10/2018. Reason for exam: Cough. FINDINGS: Operative changes are seen after midline sternotomy. No pneumothorax, pleural effusion, o r focal consolidation. Impression: No acute cardiopulmonary process.
== END 2019-01-04 11:54 | disposition home or self-care (01) ==
LOC: RAD 11:53
PROVIDERS: ATTEND General Practice
DX: R05 Cough (principal)

== ENCOUNTER 2019-03-18 10:01 | Outpatient (CLI) | payer OTHER ==
--- NOTE | 2019-03-18 10:47 | US ---
EXAM: Bilateral carotid artery Doppler History: Dizziness and giddiness Comparison: Carotid Doppler 01/15/2014 Technique: Multiple sonographic images through the bilateral internal carotid arteries were obtained . Color duplex Doppler was used to interrogate vascular flow. Findings: The right ICA peak systolic velocity is within normal limits measuring 89 cm/sec. The right ICA/cca PSV ratio is normal 1.1. The right vertebral artery is patent and demonstrates antegrade flow. Kinsey scale images demonstrate mild to moderate plaque buildup within the right internal carotid artery. The left ICA peak systolic velocity is within normal limits measuring 89 cm/sec. The left ICA/cca PS V ratio is normal at 1.1. The left vertebral artery is patent and demonstrates antegrade flow. Kinsey scale images demonstrate mild to moderate plaque buildup within the left internal carotid artery. Impression: No significant hemodynamic stenosis of the bilateral internal carotid arteries
== END 2019-03-18 10:02 | disposition home or self-care (01) ==
LOC: RAD 10:01
PROVIDERS: ATTEND Nurse Practitioner Family
DX: R42 Dizziness and giddiness (principal); R06.02 Shortness of breath; E78.5 Hyperlipidemia, unspecified; I10 Essential (primary) hypertension; F32.9 Major depressive disorder, single episode, unspecified; J44.9 Chronic obstructive pulmonary disease, unspecified; R14.0 Abdominal distension (gaseous); Z12.5 Encounter for screening for malignant neoplasm of prostate; Z72.0 Tobacco use; Z95.5 Presence of coronary angioplasty implant and graft; Z95.1 Presence of aortocoronary bypass graft
CPT/HCPCS: 36415; 80053; 80061; 84443; 85025; 86677; 93005; 93010